=== PATIENT | female | born 1940 | race Caucasian/White ===

== ENCOUNTER 2018-07-23 06:17 | Emergency (ER) | payer MEDICARE ==
[~2018-07-23] VITALS: Ht 154.9 cm; Wt 72.7 kg
[~2018-07-23 06:17] MED LIST: AMLO10TA6 PO; ASPI-515 PO; ATOR10TA9 PO; CLOP75TA52 PO; CYAN10005 PO; HYDR-3240 PO; LEVO500T47 PO; MECL25TA2 PO; METO200T47 PO; OMEG-82 PO
[2018-07-23] MEDS ORDERED: AMOX-291 PO (06:28)
[2018-07-23] MEDS ORDERED: GABA300C10 PO (06:28)
[2018-07-23] MEDS ORDERED: MECL12.52 PO (06:31)
[2018-07-23 06:58] LABS: BASOPHILS # (AUTO) 0.09 x10^3/uL (0-0.1); BASOPHILS % (AUTO) 1 % (0-1); EOSINOPHILS # (AUTO) 0.28 x10^3/uL (0-0.4); EOSINOPHILS % (AUTO) 4 % (1-7); LYMPHOCYTES # (AUTO) 2.35 x10^3/uL (1-3.4); LYMPHOCYTES % (AUTO) 31 % (22-44); MD NO; MEAN CORPUSCULAR HEMOGLOBIN 33.1 pg (27.0-34.8); MEAN CORPUSCULAR HGB CONC 33.6 g/dL (32.4-35.8); MEAN CORPUSCULAR VOLUME 98.5 fL (80-100); MEAN PLATELET VOLUME 9.1 fL (7.4-10.4); MONOCYTES # (AUTO) 0.48 x10^3/uL (0.2-0.8); MONOCYTES % (AUTO) 6 % (2-9); NEUTROPHILS # (AUTO) 4.44 x10^3/uL (1.8-6.8); NEUTROPHILS % (AUTO) 58 % (42-75); PLATELET COUNT 212 x10^3/uL (130-400); RED CELL DISTRIBUTION WIDTH 13.5 % (9.6-15.2)
[2018-07-23 07:12] LABS: ALBUMIN 3.5 g/dL (3.4-5.0); ANION GAP 10 mmol/L (5-15); CALCIUM 9.1 mg/dL (8.5-10.1); CHLORIDE 110 mmol/L (98-107); CREATININE 0.89 mg/dL (0.55-1.02)
[2018-07-23 07:16] LABS: TROPONIN I < 0.015 ng/mL (0.000-0.045)
[2018-07-23 08:00] VITALS: BP 156/78
== END 2018-07-23 08:10 | disposition home or self-care (01) ==
LOC: ED 07:45
DX: I49.3 Ventricular premature depolarization (principal); E78.5 Hyperlipidemia, unspecified; I10 Essential (primary) hypertension; I25.2 Old myocardial infarction
CPT/HCPCS: 36415; 80048; 82040; 83735; 84484; 85025; 93005; 99285

== ENCOUNTER 2019-01-06 12:01 | Observation (INO) | payer MEDICARE ==
[~2019-01-06] VITALS: Ht 154.9 cm; Wt 75.0 kg
[~2019-01-06 12:01] MED LIST changes: -AMLO10TA6 PO; +AMLO10TA8 PO; +AMOX-291 PO; +GABA300C10 PO; +MECL12.52 PO
[2019-01-06 12:30] LABS: BASOPHILS # (AUTO) 0.04 x10^3/uL (0-0.1); BASOPHILS % (AUTO) 1 % (0-1); EOSINOPHILS # (AUTO) 0.25 x10^3/uL (0-0.4); EOSINOPHILS % (AUTO) 4 % (1-7); LYMPHOCYTES % (AUTO) 52 % (22-44); MD NO; MEAN CORPUSCULAR HGB CONC 33.3 g/dL (32.4-35.8); MEAN CORPUSCULAR VOLUME 98.9 fL (80-100); MEAN PLATELET VOLUME 9.3 fL (7.4-10.4); MONOCYTES # (AUTO) 0.49 x10^3/uL (0.2-0.8); MONOCYTES % (AUTO) 8 % (2-9); NEUTROPHILS # (AUTO) 2.23 x10^3/uL (1.8-6.8); NEUTROPHILS % (AUTO) 36 % (42-75); PLATELET COUNT 225 x10^3/uL (130-400); RED BLOOD COUNT 4.17 x10^6/uL (3.82-5.3); RED CELL DISTRIBUTION WIDTH 13.8 % (9.6-15.2)
[2019-01-06] MEDS ORDERED: ASPIRIN 81 MG TABLET CHEW PO ONE (12:30)
[2019-01-06 12:42] LABS: ALBUMIN 3.8 g/dL (3.4-5.0); ANION GAP 7 mmol/L (5-15); CHLORIDE 110 mmol/L (98-107); CREATININE 0.95 mg/dL (0.55-1.02)
[2019-01-06 12:46] LABS: FREE T4 (FREE THYROXINE) 0.85 ng/dL (0.76-1.46); TROPONIN I < 0.015 ng/mL (0.000-0.045)
[2019-01-06] MEDS ORDERED: ASPIRIN 81 MG TABLET CHEW ONE (14:09)
--- NOTE | 2019-01-06 14:12 | NUR ---
ON MONITOR PT RESTING EXPLAINED PLAN OF CARE
--- NOTE | 2019-01-06 15:30 | NUR ---
PT RESTING, MEAL TRAY ORDERED, STILL WAITING ADMIT AND ORDERS
[2019-01-06] MEDS ORDERED: morphine SULFATE 10 MG/ML, 1ML IVPush PRN (16:30)
[2019-01-06] MEDS ORDERED: ONDANSETRON 2MG/ML, 2ML ONE (16:30)
[2019-01-06] MEDS ORDERED: ZOLPIDEM 5MG TABLET PO PRN (16:30)
[2019-01-06] MEDS ORDERED: ENOXAPARIN 40 MG/0.4 ML SQ SCH (16:30)
[2019-01-06] MEDS ORDERED: hydrALAzine 20 MG/ML, 1ML IVPush PRN (16:30)
[2019-01-06] MEDS ORDERED: ONDANSETRON 2MG/ML, 2ML IVPush PRN (16:30)
[2019-01-06] MEDS ORDERED: ACETAMINOPHEN 325 MG TABLET PO PRN (16:30)
[2019-01-06] MEDS ORDERED: DOCUSATE 100 MG CAPSULE PO PRN (16:30)
[2019-01-06] MEDS ORDERED: MORPHINE SULFATE 4 MG/ML, 1ML ONE (16:31)
--- NOTE | 2019-01-06 16:52 | NUR ---
MEAL GIVEN, MEDICATED FOR BACK PAIN.
[2019-01-06] MEDS ORDERED: ENOXAPARIN 40 MG/0.4 ML ONE (16:54)
[2019-01-06 18:11] LABS: TROPONIN I < 0.015 ng/mL (0.000-0.045)
[2019-01-06 19:51] VITALS: BP 126/69
[2019-01-06] MEDS ORDERED: CLOPIDOGREL 75 MG TABLET PO SCH (21:00)
[2019-01-06] MEDS ORDERED: ATORVASTATIN 40 MG TABLET PO SCH (21:00)
[2019-01-06] MEDS ORDERED: GABAPENTIN 300 MG CAPSULE PO SCH (21:00)
[2019-01-06 22:08] LABS: TROPONIN I < 0.015 ng/mL (0.000-0.045)
[2019-01-07 01:26] VITALS: BP 153/70
[2019-01-07 04:50] VITALS: BP 119/68
[2019-01-07 05:14] LABS: MEAN CORPUSCULAR HEMOGLOBIN 34.2 pg (27.0-34.8); MEAN CORPUSCULAR HGB CONC 34.2 g/dL (32.4-35.8); MEAN PLATELET VOLUME 9.2 fL (7.4-10.4); PLATELET COUNT 191 x10^3/uL (130-400); RED BLOOD COUNT 3.64 x10^6/uL (3.82-5.3); RED CELL DISTRIBUTION WIDTH 13.6 % (9.6-15.2)
[2019-01-07 05:27] LABS: ANION GAP 5 mmol/L (5-15); CALCIUM 8.3 mg/dL (8.5-10.1); CHLORIDE 112 mmol/L (98-107); CHOLESTEROL, TOTAL 152 mg/dL (140-239); CREATININE 1.09 mg/dL (0.55-1.02); TRIGLYCERIDES 179 mg/dL (50-200); VLDL CHOLESTEROL 36 mg/dL (0-25)
[2019-01-07 05:37] LABS: CHOL/HDL RATIO 3.5; HDL CHOL % 29 % (28-40); HDL CHOLESTEROL (DIRECT) 44 mg/dL (40-60); LDL CHOLESTEROL,CALCULATED 72 mg/dL (54-169); LDL/HDL RATIO 1.6 (0.5-3.0)
[2019-01-07 05:55] LABS: MD YES
[2019-01-07 05:57] LABS: EOS#(MANUAL) 0.43 x10^3/uL (0.0-0.4); EOS% (MANUAL) 7 % (1-7); LYMPH#(MANUAL) 3.05 x10^3/uL (1-3.4); LYMPHS% (MANUAL) 50 % (22-44); MONOS#(MANUAL) 0.24 x10^3/uL (0.3-2.7); MONOS% (MANUAL) 4 % (2-9); SEG#(MANUAL) 2.38 x10^3/uL (1.8-6.8); SEGS% (MANUAL) 39 % (42-75)
[2019-01-07 05:58] LABS: <PLATELET ESTIMATE> ADEQUATE; <PLT MORPHOLOGY> NORMAL PLT MORPH; <RBC MORPHOLOGY> NORMAL
[2019-01-07] MEDS ORDERED: METOPROLOL SUCCINATE 50 MG TAB.ER.24H PO SCH (06:00)
[2019-01-07 07:34] VITALS: BP 127/69
[2019-01-07] MEDS ORDERED: ASPIRIN 81 MG TABLET EC PO SCH (09:00)
[2019-01-07] MEDS ORDERED: AMLODIPINE 10 MG TAB PO SCH (09:00)
[2019-01-07] MEDS ORDERED: REGADENOSON 0.4 MG/5 ML SYRINGE ONE (11:17)
[2019-01-07 13:00] VITALS: BP 94/59
[2019-01-07] MEDS ORDERED: METO25TA91 PO (16:03)
== END 2019-01-07 17:15 | disposition home or self-care (01) ==
LOC: ED 13:13 → EDIP 13:14 → INTOOBSV 13:14 → ED 13:45 → 5SO 17:37 → DCLOUNGE 01-07 17:14
PROVIDERS: ADMIT Internal Medicine; ATTEND Internal Medicine
DX: I25.110 Atherosclerotic heart disease of native coronary artery with unstable angina pectoris (principal); E78.5 Hyperlipidemia, unspecified; I10 Essential (primary) hypertension; I25.2 Old myocardial infarction; Z95.1 Presence of aortocoronary bypass graft; I07.1 Rheumatic tricuspid insufficiency
CPT/HCPCS: 0399T; 36415; 71046; 78452; 80048; 80061; 82040; 83735; 83880; 84439; 84443; 84484; 85025; 93005; 93017; 93306; 96372; 96374; 96375; 99284; A9502; C9898; G0378; J1650; J2270; J2405; J2785

== ENCOUNTER 2020-12-05 14:03 | Observation (INO) | payer MEDICARE ==
[~2020-12-05] VITALS: Ht 154.9 cm; Wt 65.3 kg
[~2020-12-05 14:03] MED LIST changes: +AMLO-211 PO; -AMLO10TA8 PO; -ASPI-515 PO; +ASPI-963 PO; +CYAN-27 PO; -CYAN10005 PO; +HYDR-1067 PO; -HYDR-3240 PO; -MECL12.52 PO; +MECL12.582 PO; +METO25TA91 PO
[2020-12-05] MEDS ORDERED: ASPIRIN 81 MG TABLET CHEW PO ONE (14:30)
[2020-12-05] MEDS ORDERED: SODIUM CHLORIDE FLUSH 10ML SYR IVF ONE (14:30)
[2020-12-05] MEDS ORDERED: ASPIRIN 81 MG TABLET CHEW ONE (14:50)
[2020-12-05] MEDS ORDERED: NITROGLYCERIN SINGLE TAB 0.4 MG SL ONE (14:50)
[2020-12-05] MEDS ORDERED: LISI-170 PO (14:56)
[2020-12-05] MEDS ORDERED: ROSU40TA PO (14:56)
[2020-12-05] MEDS ORDERED: NITROGLYCERIN SINGLE TAB 0.4 MG SL PRN (15:00)
[2020-12-05 15:01] LABS: BASOPHILS % (AUTO) 1 % (0-1); EOSINOPHILS % (AUTO) 2 % (1-7); LYMPHOCYTES % (AUTO) 44 % (22-44); MEAN CORPUSCULAR HEMOGLOBIN 33.8 pg (27.0-34.8); MEAN PLATELET VOLUME 9.6 fL (7.4-10.4); MONOCYTES % (AUTO) 7 % (2-9); NEUTROPHILS % (AUTO) 46 % (42-75); PLATELET COUNT 195 x10^3/uL (130-400); RED BLOOD COUNT 4.19 x10^6/uL (3.82-5.3); RED CELL DISTRIBUTION WIDTH 13.7 % (9.6-15.2)
[2020-12-05 15:09] LABS: MD NO
[2020-12-05 15:10] LABS: ANION GAP 10 mmol/L (5-15); CALCIUM 9.4 mg/dL (8.5-10.1); CHLORIDE 109 mmol/L (98-107)
[2020-12-05 15:16] LABS: ALANINE AMINOTRANSFERASE 36 U/L (12-78); ALKALINE PHOSPHATASE 61 U/L (45-117); BILIRUBIN,TOTAL 0.5 mg/dL (0.2-1.0); CREATININE 1.13 mg/dL (0.55-1.02); TOTAL PROTEIN 7.7 g/dL (6.4-8.2); TROPONIN I < 0.015 ng/mL (0.000-0.045)
--- NOTE | 2020-12-05 15:36 | NUR ---
PT STS PAIN RESOLVED AFTER NITRO. RECHECK.
--- NOTE | 2020-12-05 16:00 | NUR ---
pt tbadm. as
--- NOTE | 2020-12-05 16:17 | NUR ---
AWARE OF HARSH, SR ON MONITOR. CP COMING BACK WILL NOTIFY
[2020-12-05] MEDS ORDERED: NITROGLYCERIN OINT 2%, 1GM TP ONE ×2 (16:30→16:31)
[2020-12-05] MEDS ORDERED: ACETAMINOPHEN 325 MG TABLET PO ONE (16:30)
[2020-12-05] MEDS ORDERED: ACETAMINOPHEN 325 MG TABLET ONE (16:32)
--- NOTE | 2020-12-05 16:46 | NUR ---
hospitalist in room for eval. pt refusing nitropaste and tylenol bc pain is not that bad right now. as
[2020-12-05] MEDS ORDERED: MECLIZINE 12.5 MG TABLET PO PRN (17:00)
[2020-12-05] MEDS ORDERED: morphine SULFATE 10 MG/ML, 1ML IVPush PRN (17:00)
[2020-12-05] MEDS ORDERED: MECLIZINE 25 MG TABLET PO PRN (17:00)
[2020-12-05] MEDS ORDERED: ENOXAPARIN 40 MG/0.4 ML SQ SCH ×2 (17:00→17:43)
[2020-12-05] MEDS ORDERED: ACETAMINOPHEN 325 MG TABLET PO PRN (17:00)
--- NOTE | 2020-12-05 17:05 | NUR ---
TASK RN: REPORT GIVEN TO KUMAR MUÑZO.
[2020-12-05] MEDS ORDERED: ENOXAPARIN 40 MG/0.4 ML ONE (17:09)
[2020-12-05 17:36] LABS: TROPONIN I < 0.015 ng/mL (0.000-0.045)
[2020-12-05 17:52] VITALS: BP 155/68
[2020-12-05 17:56] VITALS: BP 155/68
[2020-12-05] MEDS ORDERED: ENOXAPARIN 30 MG/0.3 ML SQ SCH (18:00)
[2020-12-05 19:01] VITALS: BP 118/66
[2020-12-05] MEDS ORDERED: NITROGLYCERIN 0.4 MG BOTTLE (25 TABS) SL PRN (20:00)
[2020-12-05 20:04] VITALS: BP 127/74
[2020-12-05 20:14] VITALS: BP 109/62
[2020-12-05] MEDS ORDERED: GABAPENTIN 300 MG CAPSULE PO SCH (21:00)
[2020-12-05] MEDS ORDERED: ATORVASTATIN 80 MG TABLET PO SCH (21:00)
[2020-12-05] MEDS ORDERED: LISINOPRIL 20 MG TABLET PO SCH (21:00)
[2020-12-05] MEDS ORDERED: CLOPIDOGREL 75 MG TABLET PO SCH (21:00)
[2020-12-05 21:30] VITALS: BP 146/71
[2020-12-05 22:46] LABS: TROPONIN I < 0.015 ng/mL (0.000-0.045)
[2020-12-06 03:17] VITALS: BP 113/65
[2020-12-06 05:13] LABS: MEAN CORPUSCULAR HEMOGLOBIN 33.8 pg (27.0-34.8); MEAN PLATELET VOLUME 9.6 fL (7.4-10.4); PLATELET COUNT 179 x10^3/uL (130-400); RED BLOOD COUNT 3.91 x10^6/uL (3.82-5.3); RED CELL DISTRIBUTION WIDTH 13.5 % (9.6-15.2)
[2020-12-06 05:26] LABS: CHLORIDE 114 mmol/L (98-107)
[2020-12-06 05:27] LABS: ANION GAP 8 mmol/L (5-15)
[2020-12-06 05:44] LABS: MD YES
[2020-12-06 05:46] LABS: EOS#(MANUAL) 0.18 x10^3/uL (0.0-0.4); EOS% (MANUAL) 3 % (1-7); LYMPHS% (MANUAL) 60 % (22-44); MONOS#(MANUAL) 0.24 x10^3/uL (0.3-2.7); MONOS% (MANUAL) 4 % (2-9); SEG#(MANUAL) 1.98 x10^3/uL (1.8-6.8); SEGS% (MANUAL) 33 % (42-75)
[2020-12-06 05:47] LABS: <PLATELET ESTIMATE> ADEQUATE; <PLT MORPHOLOGY> NORMAL PLT MORPH; <RBC MORPHOLOGY> NORMAL
[2020-12-06 08:34] VITALS: BP 120/76
[2020-12-06] MEDS ORDERED: REGADENOSON 0.4 MG/5 ML SYRINGE ONE (08:57)
[2020-12-06] MEDS ORDERED: ASPIRIN 81 MG TABLET EC PO SCH (09:00)
[2020-12-06] MEDS ORDERED: AMLODIPINE 5 MG TABLET PO SCH (09:00)
[2020-12-06] MEDS ORDERED: METOPROLOL SUCCINATE 25 MG TAB.ER.24H PO SCH ×2 (09:00)
[2020-12-06] MEDS ORDERED: OMEGA-3/FISH OIL CAPSULE PO SCH (09:00)
[2020-12-06] MEDS ORDERED: SUCRALFATE 1 GM/10 ML UDC PO SCH (11:00)
[2020-12-06 13:14] VITALS: BP 119/73
[2020-12-06] MEDS ORDERED: SUCR1ORA5 PO (14:09)
[2020-12-06] MEDS ORDERED: OMEP-110 PO (14:09)
[2020-12-06] MEDS ORDERED: FLU VACC QS2020-21(6MOS UP)/PF 60MCG/0.5 ML SYR IM-VACC ONE (15:30)
[2020-12-06] MEDS ORDERED: OMEPRAZOLE 20 MG CAPSULE.DR PO SCH (16:00)
== END 2020-12-06 16:02 | disposition home or self-care (01) ==
LOC: ED 16:20 → INTOOBSV 16:28 → EDIP 16:28 → 5SO 17:30 → DCLOUNGE 12-06 15:56
PROVIDERS: ADMIT Internal Medicine; ATTEND Family Medicine
DX: R07.89 Other chest pain (principal); K21.9 Gastro-esophageal reflux disease without esophagitis; I25.110 Atherosclerotic heart disease of native coronary artery with unstable angina pectoris; I10 Essential (primary) hypertension; E78.5 Hyperlipidemia, unspecified; H40.9 Unspecified glaucoma; I25.2 Old myocardial infarction; M54.6 Pain in thoracic spine; Z95.1 Presence of aortocoronary bypass graft; Z79.82 Long term (current) use of aspirin; Z79.899 Other long term (current) drug therapy; Z23 Encounter for immunization
CPT/HCPCS: 36415; 71045; 78452; 80048; 80053; 83880; 84484; 85025; 90686; 93005; 93017; 96372; 99291; A9502; G0008; G0378; J1650; J2785

== ENCOUNTER 2021-02-08 12:19 | Emergency (ER) | payer MEDICARE ==
[~2021-02-08] VITALS: Ht 154.9 cm; Wt 65.2 kg
[~2021-02-08 12:19] MED LIST changes: -HYDR-1067 PO; +HYDR-2214 PO; +LISI-170 PO; -MECL12.582 PO; +MECL12.590 PO; +OMEP-110 PO; +ROSU40TA PO; +SUCR1ORA5 PO
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
[2021-02-08] MEDS ORDERED: LORazepam 1MG TABLET ONE (13:03)
--- NOTE | 2021-02-08 13:05 | NUR ---
DISCUSSED WITH DR CRUZ, PT VERY UPSET/TEARFUL. RECEIVED V/O FOR ATIVAN 1MG PO. MD WILL SEE PT.
[2021-02-08] MEDS ORDERED: ACETAMINOPHEN 500 MG TABLET PO ONE (13:30)
[2021-02-08] MEDS ORDERED: ASPIRIN 81 MG TABLET CHEW PO ONE (13:30)
[2021-02-08] MEDS ORDERED: LORazepam 1MG TABLET PO ONE (13:30)
[2021-02-08] MEDS ORDERED: CALC-780 PO (13:55)
[2021-02-08] MEDS ORDERED: CHOL200040 PO (13:55)
[2021-02-08] MEDS ORDERED: ACETAMINOPHEN 500 MG TABLET ONE (14:00)
[2021-02-08] MEDS ORDERED: ASPIRIN 81 MG TABLET CHEW ONE (14:00)
--- NOTE | 2021-02-08 14:05 | NUR ---
PT NO LONGER TEARFUL. "FEELING RELAXED, HEADACHE GOING AWAY" PT GIVEN ASA AND TYLENOL ORDERED HEADACHE CURRENTLY 5/10. SR PER MONITOR. AUTO BP AND PULSE OX IN PLACE. PT AND PTS DAUGHTER AWARE OF WAITING FOR TEST RESULTS. NO NEEDS EXPRESSED AT THIS TIME.
[2021-02-08 14:10] LABS: BASOPHILS % (AUTO) 1 % (0-1); EOSINOPHILS % (AUTO) 3 % (1-7); LYMPHOCYTES % (AUTO) 33 % (22-44); MEAN CORPUSCULAR HEMOGLOBIN 33.3 pg (27.0-34.8); MEAN CORPUSCULAR HGB CONC 33.4 g/dL (32.4-35.8); MEAN PLATELET VOLUME 9.7 fL (7.4-10.4); MONOCYTES % (AUTO) 7 % (2-9); NEUTROPHILS % (AUTO) 57 % (42-75); PLATELET COUNT 170 x10^3/uL (130-400); RED BLOOD COUNT 4.09 x10^6/uL (3.82-5.3); RED CELL DISTRIBUTION WIDTH 13.5 % (9.6-15.2)
[2021-02-08 14:14] LABS: ALBUMIN 3.4 g/dL (3.4-5.0); ANION GAP 7 mmol/L (5-15); CHLORIDE 112 mmol/L (98-107)
[2021-02-08 14:17] LABS: MD NO
[2021-02-08 14:21] LABS: CREATININE 0.92 mg/dL (0.55-1.02); TROPONIN I < 0.015 ng/mL (0.000-0.045)
--- NOTE | 2021-02-08 15:04 | NUR ---
PT FEELING "BETTER" LUGO NOT GONE BUT "BETTER" AWARE OF WAITING FOR DC PAPER WORK. NO NEEDS EXPRESSED AT THIS TIME.
[2021-02-08 15:08] VITALS: BP 148/52
--- NOTE | 2021-02-08 15:14 | NUR ---
Patient and family member given discharge instructions and they have confirmed that they understand the instructions. Patient stable and ambulatory with steady gait from ED with daughter to private vehicle.
== END 2021-02-08 15:14 | disposition home or self-care (01) ==
LOC: ED 14:58
DX: F41.1 Generalized anxiety disorder (principal); R07.89 Other chest pain; R73.9 Hyperglycemia, unspecified; I10 Essential (primary) hypertension; E78.5 Hyperlipidemia, unspecified; I25.2 Old myocardial infarction; I25.10 Atherosclerotic heart disease of native coronary artery without angina pectoris
CPT/HCPCS: 36415; 71045; 80048; 82040; 84484; 85025; 93005; 99285